=== PATIENT | female | born 1995 | race African-American/Black ===

== ENCOUNTER 2019-02-21 17:18 | Emergency (ER) | payer SELFPAY ==
[~2019-02-21] VITALS: Ht 167.6 cm; Wt 99.8 kg
[2019-02-21 19:15] LABS: Basophils # (auto) 0 uL; Basophils % (auto) 0.5 % (0.0-2.0); Eosinophils # (auto) 0.2 uL; Eosinophils % (auto) 2.2 % (0.0-7.0); Hematocrit 44.3 % (36.0-46.0); Hemoglobin 14.4 g/dL (12.2-16.2); Lymphocytes # (auto) 2.1 uL; Lymphocytes % (auto) 27.4 % (10.0-50.0); Mean Corpuscular Hemoglobin 27.3 pg (28.0-32.0); Mean Corpuscular Hgb Conc. 32.4 g/dL (32.0-36.0); Mean Corpuscular Volume 84.1 fL (80.0-100.0); Monocytes # (auto) 0.6 uL; Neutrophils # (auto) 4.8 uL; Neutrophils % (auto) 61.9 % (37.0-80.0); Nucleated Red Blood Cells % 0.1 %; Platelet Count (auto) 231 10^3/uL (140-450); Red Blood Cells 5.27 10^6/uL (4.0-5.20); Red Cell Distribution Width 14.8 % (11.8-14.3); White Blood Cell 7.7 10^3/uL (4.4-10.8)
[2019-02-21 22:17] LABS: Urine Bacteria NONE SEEN /hpf (None Seen); Urine Blood 2+ /uL (Negative); Urine Mucus FEW (None Seen); Urine Specific Gravity 1.022 (1.001-1.035); Urine WBC 4 /hpf (0 - 5)
[2019-02-22] MEDS ORDERED: SODIUM CHLORIDE 0.9% 1,000 ML IVB ONE (00:06)
[2019-02-22 01:41] LABS: Albumin 3.6 g/dL (3.4-5.0); BUN/Creatinine Ratio 9.1; Calcium 8.8 mg/dL (8.5-10.1); Potassium 4.1 mmol/L (3.5-5.1)
[2019-02-22 01:44] LABS: Bilirubin, Total 0.2 mg/dL (0.2-1.0)
[2019-02-22 02:02] LABS: INR < 0.93 (0.9-1.15); Partial Thromboplastin Time 25.4 sec (23.64-32.05)
[2019-02-22 05:44] VITALS: BP 124/82
== END 2019-02-22 05:59 | disposition home or self-care (01) ==
LOC: ER 17:22
DX: O46.91 Antepartum hemorrhage, unspecified, first trimester (principal); Z3A.01 Less than 8 weeks gestation of pregnancy
CPT/HCPCS: 36415; 76801; 76817; 80053; 81001; 84702; 85025; 85610; 85730

== ENCOUNTER → 2021-09-24 | Outpatient (CLI) | payer MEDICAID ==
[2021-09-24 11:11] LABS: Basophils # (auto) 0 10 ^3/uL (0-0.2); Eosinophils # (auto) 0.1 10 ^3/uL (0-0.8); Hemoglobin 13.4 g/dL (12.2-16.2); Lymphocytes % (auto) 31.1 % (10.0-50.0); Monocytes % (auto) 5.9 % (0.0-12.0); Neutrophils # (auto) 3.6 10 ^3/uL (1.6-8.6)
[2021-09-24 11:12] LABS: Basophils % (auto) 0.7 % (0.0-2.0); Eosinophils % (auto) 1.6 % (0.0-7.0); Hematocrit 40.4 % (36.0-46.0); Lymphocytes # (auto) 1.9 10 ^3/uL (0.4-5.4); Mean Corpuscular Hemoglobin 26.3 pg (28.0-32.0); Mean Corpuscular Hgb Conc. 33.2 g/dL (32.0-36.0); Mean Corpuscular Volume 79.2 fL (80.0-100.0); Monocytes # (auto) 0.4 10 ^3/uL (0-1.3); Neutrophils % (auto) 60.7 % (37.0-80.0); Red Cell Distribution Width 16.7 % (11.8-14.3); White Blood Cell 5.9 10^3/uL (4.4-10.8)
[2021-09-24 11:50] LABS: Amphetamine Screen, Urine NEGATIVE (NEGATIVE); Barbiturate Scree,Urine NEGATIVE (NEGATIVE); Benzodiazephine Screen, Urine NEGATIVE (NEGATIVE); Cannabinoid Screen, Urine NEGATIVE (NEGATIVE); Cocaine Screen, Urine NEGATIVE (NEGATIVE); Opiate Scree,Urine NEGATIVE (NEGATIVE); Phencyclidine Screen, Urine NEGATIVE (NEGATIVE)
[2021-09-25 07:06] LABS: RPR Non Reactive (Non Reactive)
== END | disposition home or self-care (01) ==
LOC: LAB 10:22
PROVIDERS: ATTEND Obstetrics & Gynecology
DX: Z36.0 Encounter for antenatal screening for chromosomal anomalies (principal); Z34.80 Encounter for supervision of other normal pregnancy, unspecified trimester; Z31.430 Encounter of female for testing for genetic disease carrier status for procreative management; N39.0 Urinary tract infection, site not specified
CPT/HCPCS: 36415; 80307; 83036; 84112; 84144; 84702; 85025; 86592; 86703; 86762; 86850; 86900; 86901; 87086; 87340

== ENCOUNTER → 2021-11-25 | Outpatient (CLI) | payer MEDICAID | END | disposition home or self-care (01) | LOC: LAB 09:42 | PROVIDERS: ATTEND Obstetrics & Gynecology | DX: Z34.80 Encounter for supervision of other normal pregnancy, unspecified trimester (principal) | CPT/HCPCS: 36415; 85018; 86762 ==

== ENCOUNTER 2022-02-09 19:27 | Observation (INO) | payer MEDICAID ==
[2022-02-09] MEDS ORDERED: ASPI-543 PO (21:46)
== END 2022-02-09 21:53 | disposition home or self-care (01) ==
LOC: LDRP 19:27
PROVIDERS: ADMIT Obstetrics & Gynecology Obstetrics; ATTEND Obstetrics & Gynecology Obstetrics
DX: O26.893 Other specified pregnancy related conditions, third trimester (principal); R42 Dizziness and giddiness; Z3A.31 31 weeks gestation of pregnancy; Z91.040 Latex allergy status
CPT/HCPCS: 59025; 81002; 82962; G0378

== ENCOUNTER → 2022-03-25 | Outpatient (CLI) | payer MEDICAID ==
[~2022-03-25] MED LIST: ASPI-543 PO; METF-370 PO; PREN-96 PO
[2022-03-25 12:52] LABS: Basophils # (auto) 0 10 ^3/uL (0-0.2); Basophils % (auto) 0.7 % (0.0-2.0); Eosinophils # (auto) 0.1 10 ^3/uL (0-0.8); Eosinophils % (auto) 1.1 % (0.0-7.0); Hematocrit 38.7 % (36.0-46.0); Hemoglobin 12.8 g/dL (12.2-16.2); Lymphocytes # (auto) 1.7 10 ^3/uL (0.4-5.4); Lymphocytes % (auto) 29.7 % (10.0-50.0); Mean Corpuscular Hemoglobin 26.4 pg (28.0-32.0); Monocytes # (auto) 0.5 10 ^3/uL (0-1.3); Monocytes % (auto) 9.2 % (0.0-12.0); Neutrophils # (auto) 3.4 10 ^3/uL (1.6-8.6); Neutrophils % (auto) 59.3 % (37.0-80.0); Nucleated Red Blood Cells % 0.2 %; Red Blood Cells 4.84 10^6/uL (4.0-5.20); Red Cell Distribution Width 15.9 % (11.8-14.3); White Blood Cell 5.7 10^3/uL (4.4-10.8)
[2022-03-26 07:07] LABS: RPR Non Reactive (Non Reactive)
== END | disposition home or self-care (01) ==
LOC: LAB 12:31
PROVIDERS: ATTEND Obstetrics & Gynecology
DX: Z34.80 Encounter for supervision of other normal pregnancy, unspecified trimester (principal)
CPT/HCPCS: 36415; 84112; 85025; 86592

== ENCOUNTER 2022-03-26 15:32 | Observation (INO) | payer MEDICAID ==
[~2022-03-26 15:32] MED LIST changes: -METF-370 PO; -PREN-96 PO
[2022-03-26] MEDS ORDERED: PREN-96 PO (18:08)
[2022-03-26] MEDS ORDERED: METF-370 PO (18:09)
== END 2022-03-26 18:20 | disposition home or self-care (01) ==
LOC: UNDOADMOB 15:32 → LDRP 15:32 → UNDODISOB 18:20
PROVIDERS: ADMIT Obstetrics & Gynecology; ATTEND Obstetrics & Gynecology
DX: O24.419 Gestational diabetes mellitus in pregnancy, unspecified control (principal); Z3A.37 37 weeks gestation of pregnancy; Z91.040 Latex allergy status
CPT/HCPCS: 59025; 76818; 81002; 82962; 94760; G0378

== ENCOUNTER 2022-03-30 08:34 | Observation (INO) | payer MEDICAID ==
[~2022-03-30 08:34] MED LIST changes: +METF-370 PO; +PREN-96 PO
== END 2022-03-30 17:08 | disposition home or self-care (01) ==
LOC: UNDOADMOB 13:14 → LDRP 13:14
PROVIDERS: ADMIT Obstetrics & Gynecology Obstetrics; ATTEND Obstetrics & Gynecology Obstetrics
DX: O24.419 Gestational diabetes mellitus in pregnancy, unspecified control (principal); O62.9 Abnormality of forces of labor, unspecified; Z3A.38 38 weeks gestation of pregnancy
CPT/HCPCS: 59025; 76818; 81002; 82962; 94760; G0378

== ENCOUNTER 2022-04-01 22:00 | Observation (INO) | payer MEDICAID ==
[~2022-04-01] VITALS: Ht 167.6 cm; Wt 127.0 kg
== END 2022-04-01 23:43 | disposition home or self-care (01) ==
LOC: LDRP 22:00
PROVIDERS: ADMIT Obstetrics & Gynecology; ATTEND Obstetrics & Gynecology
DX: O36.8130 Decreased fetal movements, third trimester, not applicable or unspecified (principal); O26.893 Other specified pregnancy related conditions, third trimester; R10.9 Unspecified abdominal pain; Z3A.38 38 weeks gestation of pregnancy; Z79.899 Other long term (current) drug therapy
CPT/HCPCS: 59025; 76818; 81002; 82948; 82962; 94760; G0378

== ENCOUNTER 2022-04-02 14:45 | Observation (INO) | payer MEDICAID ==
[~2022-04-02] VITALS: Ht 167.6 cm; Wt 127.9 kg
[2022-04-02] MEDS ORDERED: TERBUTALINE SULFATE 1 MG/ML 1ML VIAL SC SCH (16:00)
== END 2022-04-02 16:49 | disposition home or self-care (01) ==
LOC: LDRP 14:45
PROVIDERS: ADMIT Obstetrics & Gynecology; ATTEND Obstetrics & Gynecology
DX: O62.9 Abnormality of forces of labor, unspecified (principal); Z3A.38 38 weeks gestation of pregnancy; Z79.899 Other long term (current) drug therapy
CPT/HCPCS: 59025; 81002; 82948; 82962; 94760; 96372; G0378; J3105

== ENCOUNTER 2022-04-03 17:13 | Observation (INO) | payer MEDICAID ==
[2022-04-04] MEDS ORDERED: DOCU100C10 PO (14:33)
[2022-04-04] MEDS ORDERED: HYDR-4902 PO (14:33)
[2022-04-04] MEDS ORDERED: IBU600T PO (14:33)
== END 2022-04-03 19:25 | disposition home or self-care (01) ==
LOC: LDRP 17:13
PROVIDERS: ADMIT Obstetrics & Gynecology; ATTEND Obstetrics & Gynecology
DX: O62.9 Abnormality of forces of labor, unspecified (principal); O47.03 False labor before 37 completed weeks of gestation, third trimester; O99.891 Other specified diseases and conditions complicating pregnancy; M54.50 Low back pain, unspecified; R10.30 Lower abdominal pain, unspecified; O24.419 Gestational diabetes mellitus in pregnancy, unspecified control; Z3A.38 38 weeks gestation of pregnancy; Z98.891 History of uterine scar from previous surgery
CPT/HCPCS: 59025; 81002; 82962; 94760; G0378

== ENCOUNTER 2022-04-04 05:11 | Inpatient (IN) | payer MEDICAID ==
[2022-04-02 15:45] LABS: Basophils # (auto) 0 10 ^3/uL (0-0.2); Basophils % (auto) 0.6 % (0.0-2.0); Eosinophils # (auto) 0.1 10 ^3/uL (0-0.8); Eosinophils % (auto) 1.3 % (0.0-7.0); Hematocrit 39.5 % (36.0-46.0); Hemoglobin 12.6 g/dL (12.2-16.2); Lymphocytes # (auto) 1.9 10 ^3/uL (0.4-5.4); Lymphocytes % (auto) 33.9 % (10.0-50.0); Mean Corpuscular Hemoglobin 25.3 pg (28.0-32.0); Mean Corpuscular Hgb Conc. 31.9 g/dL (32.0-36.0); Mean Corpuscular Volume 79.4 fL (80.0-100.0); Monocytes # (auto) 0.6 10 ^3/uL (0-1.3); Monocytes % (auto) 11.4 % (0.0-12.0); Neutrophils # (auto) 2.9 10 ^3/uL (1.6-8.6); Neutrophils % (auto) 52.8 % (37.0-80.0); Nucleated Red Blood Cells % 0.1 %; Red Blood Cells 4.98 10^6/uL (4.0-5.20); Red Cell Distribution Width 16.3 % (11.8-14.3); White Blood Cell 5.5 10^3/uL (4.4-10.8)
[2022-04-02 15:56] LABS: INR 0.89 (0.9-1.15)
[2022-04-02 16:04] LABS: Albumin 2.5 g/dL (3.4-5.0); Calcium 8.1 mg/dL (8.5-10.1); Potassium 3.7 mmol/L (3.5-5.1)
[2022-04-02 16:08] LABS: Bilirubin, Total 0.1 mg/dL (0.2-1.0); Total Protein 6.6 g/dL (6.4-8.2)
[2022-04-03 05:07] LABS: RPR Non Reactive (Non Reactive)
[~2022-04-04] VITALS: Ht 167.6 cm; Wt 127.9 kg
[2022-04-04] VITALS (12 sets, daily range): BP systolic 114–130; BP diastolic 64–89
[2022-04-04] MEDS ORDERED: LACTATED RINGER'S 1,000 ML IV ONE (05:30)
[2022-04-04] MEDS ORDERED: ceFAZolin 2 GM in D5W 5% 100 ML IV ONE (05:30)
[2022-04-04] MEDS: LACTATED RINGER'S 1,000 ML IV SCH ×3 (07:09→23:30)
[2022-04-04 07:56] LABS: Alcohol, Urine < 3.0 mg/dL (0-10); Amphetamine Screen, Urine NEGATIVE (NEGATIVE); Barbiturate Scree,Urine NEGATIVE (NEGATIVE); Benzodiazephine Screen, Urine NEGATIVE (NEGATIVE); Cannabinoid Screen, Urine NEGATIVE (NEGATIVE); Cocaine Screen, Urine NEGATIVE (NEGATIVE); Opiate Scree,Urine NEGATIVE (NEGATIVE); Phencyclidine Screen, Urine NEGATIVE (NEGATIVE)
[2022-04-04 08:06] LABS: Urine Bacteria FEW /hpf (None Seen); Urine Blood Negative /uL (Negative); Urine Specific Gravity 1.008 (1.001-1.035); Urine WBC 3 /hpf (0 - 5)
[2022-04-04] MEDS ORDERED: fentaNYL CITRATE 100 MCG/2 ML VL ONE (08:38)
[2022-04-04] MEDS ORDERED: MORPHINE SULF PF 5 MG/10 ML VIAL ONE (08:38)
[2022-04-04] MEDS ORDERED: BUPIVACAINE/DEXTROSE MPF 0.75% 2 ML AMP IT ONE (08:46)
[2022-04-04] MEDS ORDERED: oxyTOCIN 10 UNIT/ML 10ML VIAL ONE (12:36)
[2022-04-04] MEDS ORDERED: GUM (CHEWING) 1 GUM CHEW CHEW ONE (13:30)
[2022-04-04] MEDS ORDERED: ePHEDrine SULFATE 50 MG/ML AMP IV PRN (13:30)
[2022-04-04] MEDS ORDERED: NALOXONE HCL 0.4 MG/ML VIAL IV PRN (13:30)
[2022-04-04] MEDS ORDERED: NALBUPHINE HCL 10 MG/1ml INJECTION SUBCUT ONE (13:30)
[2022-04-04] MEDS ORDERED: ONDANSETRON HCL 4 MG/2 ML VIAL IV PRN (13:30)
[2022-04-04] MEDS ORDERED: HYDR-4902 PO (14:33)
[2022-04-04] MEDS ORDERED: IBU600T PO (14:33)
[2022-04-04] MEDS ORDERED: DOCU100C10 PO (14:33)
[2022-04-04] MEDS: KETOROLAC TROMETH 30 MG/ML 1ML VIAL IV PRN (19:57)
[2022-04-04] MEDS: DOCUSATE SOD 100 MG CAP PO SCH (22:05)
[2022-04-04] MEDS ORDERED: diphenhdrAMINE HCL 50 MG/1 ML VL IV PRN (22:30)
[2022-04-05] VITALS (18 sets, daily range): BP systolic 105–128; BP diastolic 60–83
[2022-04-05] MEDS ORDERED: ONDANSETRON HCL 4 MG/2 ML VIAL IV PRN
[2022-04-05] MEDS: KETOROLAC TROMETH 30 MG/ML 1ML VIAL IV PRN (04:18)
[2022-04-05] MEDS ORDERED: MEASLES, MUMPS & RUBELLA VAC(MMRII) 0.5ML SC ONE (05:00)
[2022-04-05] MEDS: IBUPROFEN 600 MG TAB PO SCH ×4 (05:52→23:26)
[2022-04-05] MEDS ORDERED: ACCU-CHEK COMFORT CURVE STRIP VI ONE (06:00)
[2022-04-05 07:03] LABS: Basophils # (auto) 0.1 10 ^3/uL (0-0.2); Basophils % (auto) 0.9 % (0.0-2.0); Eosinophils # (auto) 0.1 10 ^3/uL (0-0.8); Eosinophils % (auto) 1.2 % (0.0-7.0); Hematocrit 35.1 % (36.0-46.0); Hemoglobin 11.3 g/dL (12.2-16.2); Lymphocytes # (auto) 1.6 10 ^3/uL (0.4-5.4); Mean Corpuscular Hemoglobin 25.8 pg (28.0-32.0); Mean Corpuscular Hgb Conc. 32.2 g/dL (32.0-36.0); Mean Corpuscular Volume 80.1 fL (80.0-100.0); Monocytes # (auto) 0.6 10 ^3/uL (0-1.3); Monocytes % (auto) 7.9 % (0.0-12.0); Neutrophils # (auto) 4.8 10 ^3/uL (1.6-8.6); Nucleated Red Blood Cells % 0.1 %; Red Blood Cells 4.39 10^6/uL (4.0-5.20); Red Cell Distribution Width 16.4 % (11.8-14.3); White Blood Cell 7.1 10^3/uL (4.4-10.8)
[2022-04-05] MEDS: SIMETHICONE 80 MG CHEWABLE TABLET PO PRN (20:13)
[2022-04-05] MEDS: HYDROcodone-ACET 5/325MG TAB PO PRN (20:13)
[2022-04-05] MEDS: DOCUSATE SOD 100 MG CAP PO SCH (22:07)
[2022-04-06 03:00] VITALS: BP 121/71
[2022-04-06] MEDS: SIMETHICONE 80 MG CHEWABLE TABLET PO PRN (03:10)
[2022-04-06] MEDS: HYDROcodone-ACET 5/325MG TAB PO PRN (03:11)
[2022-04-06] MEDS: IBUPROFEN 600 MG TAB PO SCH (06:00)
[2022-04-06 07:00] VITALS: BP 128/81
[2022-04-06 10:00] VITALS: BP 128/74
[2022-04-06] MEDS: MEASLES, MUMPS & RUBELLA VAC(MMRII) 0.5ML SC ONE ×2 (10:28→10:43)
[2022-04-06 11:00] VITALS: BP 128/74
== END 2022-04-06 12:16 | disposition home or self-care (01) | DRG 540 ==
LOC: LDRP 05:11
PROVIDERS: ADMIT Obstetrics & Gynecology; ATTEND Obstetrics & Gynecology
PROC: 10D00Z1 Extraction of Products of Conception, Low, Open Approach (ICD-10-PCS; principal; 2022-04-04 11:57)
DX: O34.211 Maternal care for low transverse scar from previous cesarean delivery (principal); O24.429 Gestational diabetes mellitus in childbirth, unspecified control; Z20.822 Contact with and (suspected) exposure to COVID-19; Z37.0 Single live birth; Z3A.39 39 weeks gestation of pregnancy
CPT/HCPCS: 36415; 59025; 80053; 80307; 81001; 81002; 82948; 82962; 85025; 85610; 85730; 86592; 86850; 86900; 86901; 94760; 94762; 96360; 96361; 96366; 96374; 96375; G0378; J0690; J1885; J2590; J7060